=== PATIENT | male | born 1970 | race Caucasian/White ===

== ENCOUNTER 2017-11-17 22:12 | Outpatient (CLI) | payer MEDICAID | END 2017-11-17 22:13 | disposition critical access hospital (66) | LOC: EMS 22:12 | PROVIDERS: ATTEND Surgery | DX: S49.92XA Unspecified injury of left shoulder and upper arm, initial encounter (principal); M54.2 Cervicalgia; W11.XXXA Fall on and from ladder, initial encounter | CPT/HCPCS: A0425; A0427 ==

== ENCOUNTER 2017-11-17 22:24 | Emergency (ER) | payer MEDICAID ==
--- NOTE | 2017-11-17 22:25 | ED Physician Documentation ---
PD HPI Fall - Stated complaint Stated Complaint: 10' FALL - History obtained from History obtained from: Patient, EMS - History of Present Illness Mechanism of injury: Other Fall distance: 10 to 15ft Where injury occurred: Home Timing - onset: How many minutes ago (approximately 30-40 minutes [employer]) Injury(ies) location: Neck, Left Uppper Extremity Pain level now: 10 Quality of pain: Pain Associated symptoms: Neck pain. No: LOC, AMS, Weakness, Paresthesias, Dyspnea, Nausea / vomiting Symptoms improve with: Rest Worsens with: Movement Contributing factors: No: Anticoagulated, Intoxicated Similar symptoms before: Has not had sx before Recently seen: Not recently seen - Additional information Additional information: patient was working on a roof and had finished the project, started to climb down ladder when the ladder gave way, patient fell approximately 10 feet to concrete onto his left side. Denies LOC, c/o left shoulder pain, neck pain. He was able to ambulate to neighbor's house to ask for help. Review of Systems Eyes: reports: Reviewed and negative Cardiac: reports: Reviewed and negative Respiratory: reports: Reviewed and negative GI: reports: Reviewed and negative : denies: Incontinent Skin: denies: Laceration (s) Musculoskeletal: reports: Neck pain, Joint pain (left shoulder). denies: Back pain Neurologic: denies: Generalized weakness, Focal weakness, Numbness, Altered mental status, Headache, Head injury, LOC PD PAST MEDICAL HISTORY - Past Medical History Past Medical History: No - Past Surgical History Past Surgical History: No - Present Medications Home Medications: Ambulatory Orders Medication Instructions Recorded Confirmed Cyclobenzaprine [Flexeril] 10 mg PO TID PRN #20 tablet 11/18/17 oxyCODONE/ACET 5/325 [Percocet 5 1 - 2 each PO Q6H PRN #20 tablet 11/18/17 mg/325 mg] - Allergies Allergies/Adverse Reactions: Allergies Allergy/AdvReac Type Severity Reaction Status Date / Time No Known Drug Allergies Allergy Verified 11/17/17 22:30 PD ED PE NORMAL - Vitals Vital signs reviewed: Yes - General General: Alert and oriented X 3, Well developed/nourished, Other (NAD at rest but apparent painful distress with movement involving LUE at shoulder ) - HEENT HEENT: Atraumatic, PERRL, EOMI, Moist mucous membranes - Neck Neck: Supple, no meningeal sign, No bony TTP, Other (no bony tenderness; he does c/o mild discomfort at base of posterior neck with neck flexion) - Cardiac Cardiac: RRR, No murmur, No gallop, No rub - Respiratory Respiratory: No respiratory distress, Clear bilaterally - Abdomen Abdomen: Normal bowel sounds, Soft, Non tender, Non distended - Back Back: No CVA TTP, No spinal TTP - Derm Derm: Normal color, Warm and dry - Neuro Neuro: Alert and oriented X 3, sizer hand 2-12 intact, No motor deficit, No sensory deficit, Normal speech Eye Opening: Spontaneous Motor: Obeys Commands Verbal: Oriented GCS Score: 15 PD ED PE EXPANDED - Extremities Extremities: Tenderness, Limited ROM, Left shoulder Results - Vitals Vitals: Vital Signs - 24 hr 11/17/17 11/17/17 11/17/17 22:25 23:10 23:13 Temperature 36.6 C Heart Rate 98 88 Respiratory 20 13 Rate Blood Pressure 113/66 119/70 O2 Saturation 97 91 L 100 11/17/17 11/18/17 11/18/17 23:30 00:00 01:20 Temperature Heart Rate 88 86 89 Respiratory 13 16 18 Rate Blood Pressure 137/79 H 137/76 H 129/81 H O2 Saturation 100 100 97 11/18/17 11/18/17 02:32 03:20 Temperature 36.2 C L 36.5 C Heart Rate 85 92 Respiratory 14 18 Rate Blood Pressure 113/73 112/77 O2 Saturation 99 98 Oxygen O2 Source Room air Oxygen Flow Rate 2 - Rads (name of study) left shoulder xrays Radiology: Prelim report reviewed, See rad report CT neck Radiology: Prelim report reviewed, See rad report PD MEDICAL DECISION MAKING - ED course Complexity details: reviewed results, re-evaluated patient, considered differential, d/w patient Departure - Departure Disposition: 01 Home, Self Care Clinical Impression: Shoulder fracture, left, Cervical strain Condition: Good Instructions: ED Sprain Strain Neck, ED Fx Shoulder, ED Sling Follow-Up: Arturo Joiner MD [Provider Admit Priv/Credential] - (Call to arrange for next available appointment) Prescriptions: Cyclobenzaprine [Flexeril] 10 mg PO TID PRN #20 tablet PRN Reason: Spasms oxyCODONE/ACET 5/325 [Percocet 5 mg/325 mg] 1 - 2 each PO Q6H PRN #20 tablet PRN Reason: Pain Discharge Date/Time: 11/18/17 03:21
[2017-11-17] MEDS ORDERED: HYDROmorphone 1 MG/ML SYRINGE IVP STA ×2 (22:39→23:19)
[2017-11-17] MEDS ORDERED: KETOROLAC 60 MG/2 ML VIAL IVP STA (23:19)
--- NOTE | 2017-11-17 23:34 | XRAY Report ---
EXAM: LEFT SHOULDER RADIOGRAPHY EXAM DATE: 11/17/2017 11:05 PM. CLINICAL HISTORY: Fall, pain, tenderness. COMPARISON: None. TECHNIQUE: 3 views. FINDINGS: Bones: Cortical lucency seen at the left proximal humerus greater tuberosity with a vertically orient ed lucency extending from the humeral head into the proximal humeral diaphysis. These are concerning for a nondisplaced acute proximal humerus fracture. A CT of the left shoulder could further evaluate. Joints: No dislocation or significant degenerative joint disease. IMPRESSION: 1. Cortical lucency seen at the left proximal humerus greater tuberosity with a vertically oriented l ucency extending from the humeral head into the proximal humeral diaphysis. These are concerning for a nondisplaced acute proximal humerus fracture. A CT of the left shoulder could further evaluate. KALYN Referring Provider Line: [phone] SITE ID: [id number]
--- NOTE | 2017-11-17 23:41 | CT Preliminary Report ---
Exam: CT CERVICAL SPINE W/O IMPRESSION: No acute cervical spine fracture. [facility] SITE ID: [id number]
--- NOTE | 2017-11-17 23:47 | CT Report ---
EXAM: CT CERVICAL SPINE WITHOUT CONTRAST DATE: 11/17/2017 11:05 PM. HISTORY: Fall, neck tenderness. COMPARISONS: None. TECHNIQUE: Thin-section axial images were acquired of the cervical spine without contrast. Post-proce ssing: Coronal and sagittal reformats. Other: None. In accordance with CT protocol optimization, one or more of the following dose reduction techniques w ere utilized for this exam: automated exposure control, adjustment of mA and/or KV based on patient s ize, or use of iterative reconstructive technique. FINDINGS: Alignment: Grade 1 anterolisthesis is present at C7-T1 measuring 1 mm. There is no scoliosis. Bones: No fracture or bone lesion. Interspace Levels/Facets: C1-C2: Mild degenerative changes are present anteriorly without craniocervical stenosis. C2-C3: Unremarkable. C3-C4: Unremarkable. C4-C5: Unremarkable. C5-C6: Unremarkable. C6-C7: Unremarkable. C7-T1: Unremarkable. Musculature: Normal. No fatty atrophy. Other: The paravertebral and prevertebral soft tissues are unremarkable. The lung apices are clear. IMPRESSION: No acute cervical spine fracture. [facility] Referring Provider Line: [phone] SITE ID: [id number]
[2017-11-18] MEDS ORDERED: oxyCODONE/ACET 5/325 Prepack 4 PO STA (00:11)
[2017-11-18] MEDS ORDERED: CYCLOBENZAPRINE 10 MG Prepack 2 PO PRN (00:11)
[2017-11-18 03:21] VITALS: BP 112/77
== END 2017-11-18 03:21 | disposition home or self-care (01) ==
LOC: EDUNIT# → ED 22:24
DX: S42.255A Nondisplaced fracture of greater tuberosity of left humerus, initial encounter for closed fracture (principal); S16.1XXA Strain of muscle, fascia and tendon at neck level, initial encounter; W13.2XXA Fall from, out of or through roof, initial encounter; Y92.018 Other place in single-family (private) house as the place of occurrence of the external cause
CPT/HCPCS: 36415; 72125; 73030; 96374; 96375; 96376; 99283; 99284; J1170

== ENCOUNTER 2022-12-20 15:40 | Outpatient (CLI) | payer MEDICAID ==
[2022-12-20 17:59] LABS: ALBUMIN 3.8 g/dL (3.2-5.5); ALBUMIN/GLOBULIN RATIO 1.2 (1.0-2.2); BILIRUBIN,TOTAL 0.8 mg/dL (0.2-1.0); CALCIUM 8.2 mg/dL (8.5-10.3); CREATININE 1.3 mg/dL (0.6-1.2); POTASSIUM 3.2 mmol/L (3.5-5.0); TOTAL PROTEIN 7.1 g/dL (6.7-8.2)
== END 2022-12-20 15:41 | disposition home or self-care (01) ==
LOC: LAB.N 15:40
PROVIDERS: ATTEND Nurse Practitioner
DX: I50.21 Acute systolic (congestive) heart failure (principal)
CPT/HCPCS: 36415; 80053

== ENCOUNTER 2023-01-17 16:12 | Outpatient (CLI) | payer MEDICAID ==
[2023-01-17 21:02] LABS: CALCIUM 8.3 mg/dL (8.5-10.3); CREATININE 1.2 mg/dL (0.6-1.2); POTASSIUM 4.4 mmol/L (3.5-5.0)
== END 2023-01-17 16:13 | disposition home or self-care (01) ==
LOC: LAB.N 16:12
PROVIDERS: ATTEND Nurse Practitioner
DX: I50.21 Acute systolic (congestive) heart failure (principal)
CPT/HCPCS: 36415; 80048

== ENCOUNTER 2023-04-14 13:18 | Outpatient (CLI) | payer MEDICAID ==
[2023-04-14 17:54] LABS: HCT - HEMATOCRIT 58.1 % (42.0-52.0); HGB - HEMOGLOBIN 18.8 g/dL (14.0-18.0); MEAN CORPUSCULAR HEMOGLOBIN 30.6 pg (27.0-31.0); MEAN CORPUSCULAR HGB CONC 32.4 g/dL (32.0-36.0); MEAN CORPUSCULAR VOLUME 94.5 fL (80.0-94.0); MEAN PLATELET VOLUME 11.4 fL (7.4-11.4); RED BLOOD COUNT 6.15 10^6/uL (4.70-6.10); RED CELL DISTRIBUTION WIDTH 14.4 % (12.0-15.0)
[2023-04-14 18:11] LABS: ALBUMIN 3.8 g/dL (3.2-5.5); ALBUMIN/GLOBULIN RATIO 1.1 (1.0-2.2); BILIRUBIN,TOTAL 0.9 mg/dL (0.2-1.0); CALCIUM 8.4 mg/dL (8.5-10.3); CREATININE 1.6 mg/dL (0.6-1.2); POTASSIUM 4.1 mmol/L (3.5-5.0); TOTAL PROTEIN 7.2 g/dL (6.7-8.2)
== END 2023-04-14 13:19 | disposition home or self-care (01) ==
LOC: LAB.N 13:18
PROVIDERS: ATTEND Nurse Practitioner
DX: I42.0 Dilated cardiomyopathy (principal); I50.21 Acute systolic (congestive) heart failure
CPT/HCPCS: 36415; 80053; 83540; 84443; 84466; 85027

== ENCOUNTER 2023-04-25 17:07 | Outpatient (CLI) | payer MEDICAID ==
[2023-04-25 20:53] LABS: CALCIUM 8.6 mg/dL (8.5-10.3); CREATININE 1.7 mg/dL (0.6-1.2); POTASSIUM 4.5 mmol/L (3.5-5.0)
== END 2023-04-25 17:08 | disposition home or self-care (01) ==
LOC: LAB.N 17:07
PROVIDERS: ATTEND Nurse Practitioner
DX: I50.22 Chronic systolic (congestive) heart failure (principal)
CPT/HCPCS: 36415; 80048